=== PATIENT | male | born 2000 | race Caucasian/White ===

== ENCOUNTER 2019-12-24 10:07 | Emergency (ER) | payer OTHER ==
[~2019-12-24] VITALS: Ht 160 cm; Wt 53.1 kg
[2019-12-24] MEDS ORDERED: ACETAMINOPHEN 500 MG TAB PO ONE (11:15)
[2019-12-24 11:51] VITALS: O2SAT 99
[2019-12-24 12:17] LABS: BASO % 0.5 % (0.0-1.0); EOS # 0.2 10^3/uL (0.0-0.5); HEMATOCRIT 43.5 % (42.0-52.0); HEMOGLOBIN 15.1 g/dl (13.5-17.5); LYMPH % 26.9 % (24.0-44.0); MEAN CORPUSCULAR HEMOGLOBIN 29.3 pg (27.0-33.0); MEAN CORPUSCULAR HGB CONC 34.7 g/dl (32.0-36.5); MEAN CORPUSCULAR VOLUME 84.5 fl (80.0-96.0); MONO # 0.9 10^3/uL (0.0-0.8); MONO % 12.1 % (0.0-5.0); NEUTROPHILS # 4.2 10^3/uL (1.5-8.5); NEUTROPHILS % 57.2 % (36.0-66.0); PLATELET COUNT, AUTOMATED 247 10^3/uL (150-450); RED BLOOD COUNT 5.15 10^6/uL (4.30-6.10); WHITE BLOOD COUNT 7.3 10^3/uL (4.0-10.0)
[2019-12-24 12:39] LABS: BLOOD UREA NITROGEN 12 MG/DL (7-18); CALCIUM LEVEL 9.4 MG/DL (8.5-10.1); CARBON DIOXIDE LEVEL 30 MEQ/L (21-32); CHLORIDE LEVEL 107 MEQ/L (98-107); CPK CREATINE PHOSPHOKINASE 160 U/L (39-308); GLUCOSE, FASTING 76 MG/DL (70-100); MB/CK RELATIVE INDEX 0.62 (< OR =4); POTASSIUM SERUM 4.4 MEQ/L (3.5-5.1); SODIUM LEVEL 142 MEQ/L (136-145); TROPONIN I < 0.02 NG/ML (< 0.10)
[2019-12-24] MEDS ORDERED: PROAAER10 INH (13:26)
[2019-12-24] MEDS ORDERED: IBUP80TA PO (13:27)
[2019-12-24] MEDS ORDERED: TESS100C PO (13:30)
[2019-12-24 13:38] VITALS: BP 123/61
--- NOTE | 2020-01-10 10:44 | ECGEPIP ---
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
--- NOTE | 2020-01-24 10:41 | REP ---
CHEST X-RAY CLINICAL: Chest pain and shortness of breath with cough. TECHNIQUE: PA and lateral. COMPARISON: None. FINDINGS: Mediastinum and cardiac silhouette normal. Lung sheets clear. No focal consolidation, effusion, or pneumothorax. Skeletal structures are intact. IMPRESSION: Normal chest x-ray. No acute cardiopulmonary process or focal consolidation. MTDD
== END 2019-12-24 13:41 | disposition home or self-care (01) ==
LOC: M ED 10:07
DX: J98.01 Acute bronchospasm (principal); B97.19 Other enterovirus as the cause of diseases classified elsewhere; F17.210 Nicotine dependence, cigarettes, uncomplicated

== ENCOUNTER 2020-06-19 22:10 | Emergency (ER) | payer OTHER ==
[~2020-06-19] VITALS: Ht 160 cm; Wt 53.1 kg
[~2020-06-19 22:10] MED LIST: IBUP80TA PO; PROAAER10 INH; TESS100C PO
--- OUTSIDE RECORDS SUMMARY | 2020-06-19 22:23 | CCD ---
Author Author [facility] Organization [facility] Address Unknown Phone Unavailable Support Name Relationship Address Phone [facility] Next Of Kin [address] [place] [address] Unavailable JUDE [place] [address] Re-disclosure Warning The records that you are about to access may contain information from federally-assisted alcohol or drug abuse programs. If such information is present, then the following federally mandated warning applies: This information has been disclosed to you from records protected by federal confidentiality rules (42 CFR part 2). The federal rules prohibit you from making any further disclosure of this information unless further disclosure is expressly permitted by the written consent of the person to whom it pertains or as otherwise permitted by 42 CFR part 2. A general authorization for the release of medical or other information is NOT sufficient for this purpose. The Federal rules restrict any use of the information to criminally investigate or prosecute any alcohol or drug abuse patient.The records that you are about to access may contain highly sensitive health information, the redisclosure of which is protected by Article 27-F of the [facility] Public Health law. If you continue you may have access to information: Regarding HIV / AIDS; Provided by facilities licensed or operated by the [facility] Office of Mental Health; or Provided by the [facility] Office for People With Developmental Disabilities. If such information is present, then the following [facility] mandated warning applies: This information has been disclosed to you from confidential records which are protected by state law. State law prohibits you from making any further disclosure of this information without the specific written consent of the person to whom it pertains, or as otherwise permitted by law. Any unauthorized further disclosure in violation of state law may result in a fine or fci sentence or both. A general authorization for the release of medical or other information is NOT sufficient authorization for further disc losure. Insurance Providers Payer name Policy type / Coverage type Policy ID Covered libertarian ID Covered libertarian's relationship to bashir Policy Bashir Plan Information [facility] [employer] [id number]
[2020-06-19] MEDS ORDERED: OLAN5ZYD PO (22:30)
[2020-06-19] MEDS ORDERED: ESCI5SOL3 PO (22:30)
[2020-06-19] MEDS ORDERED: HYDR-3363 PO (22:30)
[2020-06-19 23:38] LABS: HEMATOCRIT 44.5 % (42.0-52.0); HEMOGLOBIN 15.2 g/dl (13.5-17.5); MEAN CORPUSCULAR HEMOGLOBIN 28.6 pg (27.0-33.0); MEAN CORPUSCULAR HGB CONC 34.2 g/dl (32.0-36.5); MEAN CORPUSCULAR VOLUME 83.6 fl (80.0-96.0); PLATELET COUNT, AUTOMATED 269 10^3/uL (150-450); RED BLOOD COUNT 5.32 10^6/uL (4.30-6.10)
[2020-06-20 00:01] LABS: AMPHETAMINES LEVEL URINE NEGATIVE (NEGATIVE); BARBITURATES URINE NEGATIVE (NEGATIVE); BENZODIAZEPINES URINE NEGATIVE (NEGATIVE); CANNABINOIDS URINE NEGATIVE (NEGATIVE); COCAINE METABOLITE URINE NEGATIVE (NEGATIVE); METHADONE URINE NEGATIVE (NEGATIVE); OPIATES URINE NEGATIVE (NEGATIVE); PHENCYCLIDINE URINE NEGATIVE (NEGATIVE)
[2020-06-20 00:11] LABS: ACETAMINOPHEN LEVEL < 2.0 UG/ML (10.0-30.0); ALBUMIN 4.3 GM/DL (3.2-5.2); ALT/SGPT 22 U/L (12-78); BILIRUBIN,DIRECT 0.1 MG/DL (0.0-0.2); BILIRUBIN,TOTAL 0.4 MG/DL (0.2-1.0); BLOOD UREA NITROGEN 18 MG/DL (7-18); CALCIUM LEVEL 9.6 MG/DL (8.5-10.1); CARBON DIOXIDE LEVEL 33 MEQ/L (21-32); CHLORIDE LEVEL 101 MEQ/L (98-107); CREATININE FOR GFR 1.17 MG/DL (0.70-1.30); ETHYL ALCOHOL (ETHANOL) < 0.003 % (0.000-0.010); GLOMERULAR FILTRATION RATE > 60.0 (>60); GLUCOSE, FASTING 84 MG/DL (70-100); POTASSIUM SERUM 4.2 MEQ/L (3.5-5.1); SALICYLATE LEVEL < 1.7 MG/DL (5.0-30.0); SODIUM LEVEL 138 MEQ/L (136-145); TOTAL PROTEIN 7.7 GM/DL (6.4-8.2)
--- OUTSIDE RECORDS SUMMARY | 2020-06-20 03:02 | CCD ---
Author Author [facility] Organization [facility] Address Unknown Phone Unavailable Support Name Relationship Address Phone [facility] Next Of Kin [address] [place] [address] Unavailable JUDE [place] [address] Re-disclosure Warning The records that you are [...] is protected by Article 27-F of the [facility] Public Health law. If you continue you may have access to information: Regarding HIV / AIDS; Provided by facilities licensed or operated by the [facility] Office of Mental Health; or Provided by the [facility] Office for People With Developmental Disabilities. If such information is present, then the following [facility] mandated warning applies: This information has been [...] law may result in a fine or long-term sentence or both. A general authorization for the release of medical or other information is NOT sufficient authorization for further disc losure. Insurance Providers Payer name Policy type / Coverage type Policy ID Covered republican ID Covered republican's relationship to bashir Policy Bashir Plan Information [facility] ACTIVE DUTY [id number]
--- NOTE | 2020-06-20 07:56 | ECGEPIP ---
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
[2020-06-20 15:31] VITALS: BP 119/59
== END 2020-06-20 15:33 ==
LOC: M ED 22:10
DX: R45.851 Suicidal ideations (principal); F33.9 Major depressive disorder, recurrent, unspecified; S46.222A Laceration of muscle, fascia and tendon of other parts of biceps, left arm, initial encounter; X58.XXXA Exposure to other specified factors, initial encounter; Y92.89 Other specified places as the place of occurrence of the external cause; F41.9 Anxiety disorder, unspecified; Z79.899 Other long term (current) drug therapy; Z77.098 Contact with and (suspected) exposure to other hazardous, chiefly nonmedicinal, chemicals
CPT/HCPCS: 36415; 80048; 80076; 80143; 80307; 82077; 84443; 85027; 93005; 99285; U0002

== ENCOUNTER 2020-08-05 00:54 | Inpatient (IN) | payer OTHER ==
[~2020-08-05] VITALS: Ht 160 cm; Wt 52.3 kg
[~2020-08-05 00:54] MED LIST changes: +ESCI5SOL3 PO; +HYDR-3363 PO; +OLAN5ZYD PO
[2020-08-05] MEDS ORDERED: MELA3TAB70 PO (01:02)
[2020-08-05 01:36] LABS: HEMATOCRIT 41.1 % (42.0-52.0); HEMOGLOBIN 14.3 g/dl (13.5-17.5); MEAN CORPUSCULAR HEMOGLOBIN 28.9 pg (27.0-33.0); MEAN CORPUSCULAR HGB CONC 34.8 g/dl (32.0-36.5); MEAN CORPUSCULAR VOLUME 83.2 fl (80.0-96.0); PLATELET COUNT, AUTOMATED 242 10^3/uL (150-450); RED BLOOD COUNT 4.94 10^6/uL (4.30-6.10)
[2020-08-05 02:10] LABS: ACETAMINOPHEN LEVEL 2.3 UG/ML (10.0-30.0); ALBUMIN 4.5 GM/DL (3.2-5.2); ALT/SGPT 55 U/L (12-78); BILIRUBIN,DIRECT 0.3 MG/DL (0.0-0.2); BILIRUBIN,TOTAL 0.7 MG/DL (0.2-1.0); BLOOD UREA NITROGEN 8 MG/DL (7-18); CALCIUM LEVEL 10.1 MG/DL (8.5-10.1); CARBON DIOXIDE LEVEL 28 MEQ/L (21-32); CHLORIDE LEVEL 105 MEQ/L (98-107); CREATININE FOR GFR 1.02 MG/DL (0.70-1.30); ETHYL ALCOHOL (ETHANOL) < 0.003 % (0.000-0.010); GLOMERULAR FILTRATION RATE > 60.0 (>60); GLUCOSE, FASTING 87 MG/DL (70-100); POTASSIUM SERUM 3.7 MEQ/L (3.5-5.1); SALICYLATE LEVEL < 1.7 MG/DL (5.0-30.0); SODIUM LEVEL 139 MEQ/L (136-145); TOTAL PROTEIN 7.7 GM/DL (6.4-8.2)
[2020-08-05 02:17] LABS: AMPHETAMINES LEVEL URINE NEGATIVE (NEGATIVE); BARBITURATES URINE NEGATIVE (NEGATIVE); BENZODIAZEPINES URINE NEGATIVE (NEGATIVE); CANNABINOIDS URINE NEGATIVE (NEGATIVE); COCAINE METABOLITE URINE NEGATIVE (NEGATIVE); METHADONE URINE NEGATIVE (NEGATIVE); OPIATES URINE NEGATIVE (NEGATIVE); PHENCYCLIDINE URINE NEGATIVE (NEGATIVE)
[2020-08-05] MEDS ORDERED: NICOTINE 21MG/24HR 1 EA TRANSDERMAL TD ONE (14:45)
--- NOTE | 2020-08-05 16:01 | ECGEPIP ---
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
[2020-08-06] MEDS ORDERED: hydrOXYzine 25 MG TAB PO ONE ×2 (00:15→07:20)
[2020-08-06 09:29] LABS: RSV AMPLIFICATION NEGATIVE (NEGATIVE)
[2020-08-06] MEDS ORDERED: MOM 30ML SUSPENSION UDC PO PRN (13:50)
[2020-08-06] MEDS ORDERED: IBUPROFEN 400MG TAB PO PRN (13:50)
[2020-08-06] MEDS ORDERED: MAALOX 30 ML SUSP *UDC PO PRN (13:50)
[2020-08-06] MEDS ORDERED: OLAN5TAB PO (15:02)
[2020-08-06] MEDS ORDERED: LEXA1TAB PO (15:02)
[2020-08-06] MEDS ORDERED: RA M10TA PO (15:02)
[2020-08-06 15:24] VITALS: BP 127/63
[2020-08-06] MEDS: NICOTINE 14 MG/24 HR TRANSDERMAL TD SCH (15:44)
[2020-08-06] MEDS ORDERED: hydrOXYzine 25 MG TAB PO PRN (16:05)
[2020-08-06] MEDS: ESCITALOPRAM OXALATE 10 MG TAB (LEXAPRO) PO SCH (17:08)
[2020-08-06] MEDS: OLANZapine 5 MG TAB PO SCH (20:35)
[2020-08-06] MEDS: traZODone 50 MG TAB PO PRN (20:35)
[2020-08-07] MEDS: NICOTINE 14 MG/24 HR TRANSDERMAL TD SCH (08:58)
[2020-08-07] MEDS: ESCITALOPRAM OXALATE 10 MG TAB (LEXAPRO) PO SCH (08:58)
--- NOTE | 2020-08-07 10:52 | HPEPDOC ---
[facility] Medical History & Physical Date of Admission Aug 05, 2020 Date of Service: Aug 07, 2020 History and Physical CHIEF COMPLAINT: Suicidal ideation HISTORY OF PRESENT ILLNESS: 20-year-old male presents for suicidal ideation. He does have a past medical history significant for suicidal ideation. He noted that he did have thoughts of hanging himself with rope for possible shoelaces. This morning. He voices no medical complaints. He denies chest pain, shortness of breath, abdominal pain, nausea, vomiting, diarrhea or headaches. ALLERGIES: Please see below. REVIEW OF SYSTEMS: Negative except as per HPI. HOME MEDICATIONS: Please see below. PHYSICAL EXAMINATION: VITAL SIGNS: See below General: NAD, sitting comfortably in chair HEENT: NC/AT Lungs: CTA B/L Heart: +S1S2, RRR Abd: soft, NT, +BS Ext: no edema LABORATORY DATA: See below. MICROBIOLOGY: Please see below. A/P: 20 year old male for suicidal ideation. #SI - as per primary team psychiatry Thank you for this consultation. Please re-consult as needed. Vital Signs Vital Signs Date Time Temp Pulse Resp B/P (MAP) Pulse Ox O2 Delivery O2 Flow Rate FiO2 08/06/20 15:24 98.7 72 16 127/63 (84) 100 Room Air Home Medications Scheduled Escitalopram Oxalate (Lexapro) 10 Mg Tablet, 10 MG PO DAILY Olanzapine (Olanzapine) 5 Mg Tablet, 5 MG PO QHS Scheduled PRN Hydroxyzine HCl (Hydroxyzine HCl) 25 Mg Tablet, 25 MG PO TID PRN for ANXIETY/AGITATION Allergies Coded Allergies: No Known Allergies (Unverified , 12/24/19) A-FIB/CHADSVASC A-FIB History Current/History of A-Fib/PAF?: No RENE BONILLA MD Aug 07, 2020 10:51
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
[2020-08-07 16:32] VITALS: BP 112/60
[2020-08-07] MEDS: traZODone 50 MG TAB PO PRN (20:06)
[2020-08-07] MEDS: OLANZapine 5 MG TAB PO SCH (20:06)
[2020-08-08 06:10] VITALS: BP 122/61
[2020-08-08 07:53] LABS: CHOLESTEROL RISK RATIO 2.773 (<5)
[2020-08-08] MEDS: ESCITALOPRAM OXALATE 10 MG TAB (LEXAPRO) PO SCH (09:02)
[2020-08-08] MEDS: NICOTINE 14 MG/24 HR TRANSDERMAL TD SCH (09:02)
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
[2020-08-08 16:36] VITALS: BP 110/57
[2020-08-08] MEDS: traZODone 50 MG TAB PO PRN (20:20)
[2020-08-08] MEDS: OLANZapine 5 MG TAB PO SCH (20:20)
[2020-08-09 06:32] VITALS: BP 140/63
[2020-08-09] MEDS: NICOTINE 14 MG/24 HR TRANSDERMAL TD SCH ×2 (09:00→12:30)
[2020-08-09] MEDS: ESCITALOPRAM OXALATE 10 MG TAB (LEXAPRO) PO SCH (09:21)
--- NOTE | 2020-08-09 10:18 | MHDSPDOC ---
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 He reports that he is not thinking of suicide during the initial interview and states that he has suicidal thoughts off and on for the past 6 years. States "it never lasts long" When he does think about it, he thinks of hanging himself and has thought of other things to do to self-harm but did not elaborate. He states that he doesn't feel suicidal at the time of the interview, doesn't feel that he has any stressors that he can pinpoint but does report that he has not been taking his medications. Patient does not want to stay in the hospital and [place] PER ED REPORT: Pt was brought to the ED by GILMA due to SI. TW spoke to SGT Fish ([phone]). He states that pt starts to have SI when he is left alone for more than a few days. The unit was out in the field this past week but pt. did not go with them. On 08/03/20 pt. told his therapist at [facility] that he had a rope that he was thinking about hanging himself with so he was instructed to give it to somebody as a safety protocol. He did give the rope to one of his friends, but still had other objects in his room that he could use to hang himself with. Per SGT Fish, pt.s william SSgt read pt.s journal marielosight which had a lot of dark thoughts in it & mentioned suicide as an option frequently. GILMA instructed pt. to bring the journal here to the ED with him but pt. refused. SGT Fish states that pt. went to group therapy twice at [facility] but then stopped going because he did not feel it was beneficial. Pt states "I had a rough night. The suicidal thoughts were starting to get really bad." He states that he had a friend remove all his shoelaces, belts, ropes, & anything else that he could use to hang himself with. Pt denies SI at the present moment stating "I feel amazing now. I took my meds." Pt cannot identify any triggers for his SI & states that he had a really good day. Pt denies HI. He has a Hx of holding a knife to his throat multiple times when he was younger & he reports a suicide attempt via hanging two years ago. Pt reports that he has "dissociative episodes" & in May 2020 he was hospitalized following one of these episodes because he cut himself to "find out if I was real." Pt denies both AH & VH. He does not appear to be psychotic. Pt c/o depressed mood, anxiety, decreased energy levels, & poor sleep. He has a hx of MDD & anxiety with two admissions. He was admitted to [facility] in [place] for 28 days in April 2020 because he was not eating or sleeping. He was admitted to [place] in May 2020 after the cutting incident. He has OP tx at [facility]. Pt states he is prescribed Lexapro, Atarax, & Zyprexa. Pt denies any drug use & report s only occasional alcohol use. Pt's tox screen was negative. CONSULTANTS INVOLVED: See Medical H + P by Hospitalist TREATMENT AND PROGRESS ON THE UNIT: Patient was admitted to the [facility] on a 9.39 legal status he was afforded the following treatment modalities: 1) Individual Therapy 2) Group Therapy 3) Medication Management 4) Milieu Therapy 5) Safe Environment HOSPITAL COURSE: Patient was admitted to [facility] on a 9.39 legal status. He was started on his home medications and did not agree on any increase in his Lexapro. States that he was only having thoughts of suicide but was not actually having any intent to harm himself. He states he was in the process of using his safety plans when it was interrupted and he was mandated to be seen in the ED for a Mental Health evaluation. He was cooperative on the unit, stayed close to his quarters but was social at times with peers, attended a few groups and was present in the milieu at times. He was agreeable to his current medications. We discussed his long time off and on again suicidality, patient could not identify stressors or any specific triggers, he is often observed superficial and minimizing any depressive symptoms. DISCHARGE ASSESSMENT: In today's interview, patient is alert and oriented, pts dress is appropriate. Hygiene and grooming is well-kempt. Smiles on approach and is pleasant and engaged in the interview. Denies depression and anxiety. Denies suicidal and homicidal ideation, planning or intent. Denies and is not observed with sarah, psychotic symptoms of delusions, bizarre thinking, obsessions, paranoia, ruminations illogical thoughts, flight of ideas or having poor insight and judgement. Patient has normal mentation, declines further hospitalization on a voluntary status and meets criteria for discharge today. Patient encouraged to return to hospital if his symptoms worsen or change and encouraged to call unit if he/she/they needs to speak to provider for questions regarding medications or care. 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 Speech: Is fluid, normal rate, tone and volume Language skills are intact Thought processes including: linear and goal oriented Thought content: denies depression and anxiety. Denies suicidal/homicidal ideation, planning or intent. Abstract reasoning, and computation: fair Description of associations: denies, none observed Description of abnormal or psychotic thoughts: denies, none observed. Judgment: fair Insight: fair Orientation: alert and oriented to person, place, time and situation Recent and remote memory: intact Attention span and concentration: good Language: expansive Fund of knowledge: average Mood: Euthymic Mood Affect: Flat MEDICATIONS ON DISCHARGE: See Medication Reconciliation, patient was continued on all his current home medications, he denied needing any renewals. PLAN/FOLLOWUP ARRANGEMENTS: Patient is being discharged to [facility]. He is following up with [facility] where he is already established. The amount of time spent in the coordination of care for this patient was approximately 30 minutes. ETOH/Disorder Med Rx ETOH/DRUG DISORDER RX: N/A Vital Signs/I&Os Vital Signs Date Time Temp Pulse Resp B/P (MAP) Pulse Ox O2 Delivery O2 Flow Rate FiO2 08/09/20 06:32 98.0 50 16 140/63 (88) 97 Room Air Medications Scheduled Escitalopram Oxalate (Lexapro) 10 Mg Tablet, 10 MG PO DAILY, (Reported) Olanzapine (Olanzapine) 5 Mg Tablet, 5 MG PO QHS, (Reported) Scheduled PRN Hydroxyzine HCl (Hydroxyzine HCl) 25 Mg Tablet, 25 MG PO TID PRN for ANXIETY/AGITATION, (Reported) Allergies Coded Allergies: No Known Allergies (Unverified , 12/24/19) KATIE CONSTANTINO NP Aug 09, 2020 10:18
--- NOTE | 2020-08-09 17:56 | MHIPNPDOC ---
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 He reports that he is not thinking of suicide during the initial interview and states that he has suicidal thoughts off and on for the past 6 years. States "it never lasts long" When he does think about it, he thinks of hanging himself and has thought of other things to do to self-harm but did not elaborate. He states that he doesn't feel suicidal at the time of the interview, doesn't feel that he has any stressors that he can pinpoint but does report that he has not been taking his medications. Patient does not want to stay in the hospital and reports that [place]. PER ED REPORT: Pt was brought to the ED by GILMA due to SI. TW spoke to SGT Fish ([phone]). He states that pt starts to have SI when he is left alone for more than a few days. The unit was out in the field this past week but pt. did not go with them. On 08/03/20 pt. told his therapist at [facility] that he had a rope that he was thinking about hanging himself with so he was instructed to give it to somebody as a safety protocol. He did give the rope to one of his friends, but still had other objects in his room that he could use to hang himself with. Per SGT Fish, pt.s william SSgt read pt.s journal [employer] which had a lot of dark thoughts in it & mentioned suicide as an option frequently. GILMA instructed pt. to bring the journal here to the ED with him but pt. refused. SGT Fish states that pt. went to group therapy twice at [facility] but then stopped going because he did not feel it was beneficial. Pt states "I had a rough night. The suicidal thoughts were starting to get really bad." He states that he had a friend remove all his shoelaces, belts, ropes, & anything else that he could use to hang himself with. Pt denies SI at the present moment stating "I feel amazing now. I took my meds." Pt cannot identify any triggers for his SI & states that he had a really good day. Pt denies HI. He has a Hx of holding a knife to his throat multiple times when he was younger & he reports a suicide attempt via hanging two years ago. Pt reports that he has "dissociative episodes" & in May 2020 he was hospitalized following one of these episodes because he cut himself to "find out if I was real." Pt denies both AH & VH. He does not appear to be psychotic. Pt c/o depressed mood, anxiety, decreased energy levels, & poor sleep. He has a hx of MDD & anxiety with two admissions. He was admitted to [facility] in [place] for 28 days in April 2020 because he was not eating or sleeping. He was admitted to [place] in May 2020 after the cutting incident. He has OP tx at [facility]. Pt states he is prescribed Lexapro, Atarax, & Zyprexa. Pt denies any drug use & report s only occasional alcohol use. Pt's tox screen was negative. VITAL SIGNS: See below. NEW TEST RESULTS: see below CURRENT MEDICATIONS: See below. 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 Speech: Is fluid, conversant, normal rate, tone and volume Language skills are intact Thought processes including: linear and goal oriented Thought content: denies depression and anxiety. Denies suicidal/homicidal ideation, planning or intent. Abstract reasoning, and computation: fair Description of associations: denies, none observed Description of abnormal or psychotic thoughts: denies, none observed. Judgment: fair Insight: fair Orientation: alert and oriented to person, place, time and situation Recent and remote memory: intact Attention span and concentration: good Language: expansive Fund of knowledge: average Mood: Euthymic Mood Affect: reactive DIAGNOSES: Major Depressive Disorder, Recurrent, Moderate Unspecified Anxiety Disorder Nicotine Use Disorder ASSESSMENT: Patient is requesting to be discharged today. He denies suicidal ideation today, reports that he has a safety plan. Denies current suicidality. Denies continued depressive symptoms that require continued hospitalization. MANAGEMENT PLAN: Continue all medications, patient declined any changes to medications and requesting discharge. Discharge was initiated today, Chain of Command were unable to warehouse picker patient TIME SPENT: 25 minutes. Vital Signs Vital Signs Date Time Temp Pulse Resp B/P (MAP) Pulse Ox O2 Delivery O2 Flow Rate FiO2 08/09/20 09:00 Room Air 08/09/20 06:32 98.0 50 16 140/63 (88) 97 Current Medications Current Medications Medications (Trade) Dose Ordered Sig/Jah Route PRN Reason Start Time Stop Time Status Last Admin Dose Admin Al Hydrox/Mg Hydrox/Simethicone (Mylanta) 30 ml Q4HP PRN PO HEARTBURN/INDIGESTION 08/06/20 13:50 Escitalopram Oxalate (Lexapro) 10 mg DAILY PO 08/06/20 09:00 08/09/20 09:21 Home Med (Med Rec Complete!) ASDIRECTED XX 08/06/20 15:30 08/06/20 15:31 DC Hydroxyzine HCl (Atarax) 25 mg TID PRN PO ANXIETY/AGITATION 08/06/20 16:05 Ibuprofen (Advil) 400 mg Q6HP PRN PO PAIN 08/06/20 13:50 Magnesium Hydroxide (Milk Of Magnesia) 30 ml DAILYPRN PRN PO CONSTIPATION 08/06/20 13:50 Nicotine (Nicoderm Cq 14mg) 1 patch DAILY TD 08/06/20 15:00 08/09/20 12:30 Olanzapine (ZyPREXA) 5 mg QHS PO 08/06/20 21:00 08/08/20 20:20 Trazodone HCl (Desyrel) 50 mg QHSP PRN PO INSOMNIA 08/06/20 13:50 08/08/20 20:20 Allergies Coded Allergies: No Known Allergies (Unverified , 12/24/19) KATIE CONSTANTINO NP Aug 09, 2020 17:56
[2020-08-09 18:43] VITALS: BP 109/53
[2020-08-09] MEDS: traZODone 50 MG TAB PO PRN (21:13)
[2020-08-09] MEDS: OLANZapine 5 MG TAB PO SCH (21:13)
[2020-08-10 06:28] VITALS: BP 126/61
[2020-08-10] MEDS: NICOTINE 14 MG/24 HR TRANSDERMAL TD SCH (09:00)
[2020-08-10] MEDS: ESCITALOPRAM OXALATE 10 MG TAB (LEXAPRO) PO SCH (09:08)
--- NOTE | 2020-08-10 09:54 | MHDSPDOC ---
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 He reports that he is not thinking of suicide during the initial interview and states that he has suicidal thoughts off and on for the past 6 years. States "it never lasts long" When he does think about it, he thinks of hanging himself and has thought of other things to do to self-harm but did not elaborate. He states that he doesn't feel suicidal at the time of the interview, doesn't feel that he has any stressors that he can pinpoint but does report that he has not been taking his medications. Patient does not want to stay in the hospital and [place] that [place] PER ED REPORT: Pt was brought to the ED by GILMA due to SI. TW spoke to SGT Fish ). He states that pt starts to have SI when he is left alone for more than a few days. The unit was out in the field this past week but pt. did not go with them. On 08/03/20 pt. told his therapist at [facility] that he had a rope that he was thinking about hanging himself with so he was instructed to give it to somebody as a safety protocol. He did give the rope to one of his friends, but still had other objects in his room that he could use to hang himself with. Per SGT Fish, pt.s william SSgt read pt.s journal marielosight which had a lot of dark thoughts in it & mentioned suicide as an option frequently. GILMA instructed pt. to bring the journal here to the ED with him but pt. refused. SGT Fish states that pt. went to group therapy twice at [facility] but then stopped going because he did not feel it was beneficial. Pt states "I had a rough night. The suicidal thoughts were starting to get really bad." He states that he had a friend remove all his shoelaces, belts, ropes, & anything else that he could use to hang himself with. Pt denies SI at the present moment stating "I feel amazing now. I took my meds." Pt cannot identify any triggers for his SI & states that he had a really good day. Pt denies HI. He has a Hx of holding a knife to his throat multiple times when he was younger & he reports a suicide attempt via hanging two years ago. Pt reports that he has "dissociative e pisodes" & in May 2020 he was hospitalized following one of these episodes because he cut himself to "find out if I was real." Pt denies both AH & VH. He does not appear to be psychotic. Pt c/o depressed mood, anxiety, decreased energy levels, & poor sleep. He has a hx of MDD & anxiety with two admissions. He was admitted to [place] in [place] for 28 days in April 2020 because he was not eating or sleeping. He was admitted to [place] in May 2020 after the cutting incident. He has OP tx at [facility]. Pt states he is prescribed Lexapro, Atarax, & Zyprexa. Pt denies any drug use & report s only occasional alcohol use. Pt's tox screen was negative. CONSULTANTS INVOLVED: See Medical H + P by Hospitalist TREATMENT AND PROGRESS ON THE UNIT: [facility] he was afforded the following treatment modalities: 1) Individual Therapy 2) Group Therapy 3) Medication Management 4) Milieu Therapy 5) Safe Environment HOSPITAL COURSE: [facility] 9.39 [facility]. He was started on his home medications and did not agree on any increase in his Lexapro. States that he was only having thoughts of suicide but was not actually having any intent to harm himself. He states he was in the process of using his safety plans when it was interrupted and he was mandated to be seen in the ED for a Mental Health evaluation. He was cooperative on the unit, stayed close to his quarters but was social at times with peers, attended a few groups and was present in the milieu at times. He was agreeable to his current medications. We discussed his long time off and on again suicidality, patient could not identify stressors or any specific triggers, he is often observed superficial and minimizing any depressive symptoms. DISCHARGE ASSESSMENT: In today's interview, patient is alert and oriented, pts dress is appropriate. Hygiene and grooming is well-kempt. Smiles on approach and is pleasant and engaged in the interview. Denies depression and anxiety. Denies suicidal and homicidal ideation, planning or intent. Denies and is not observed with sarah, psychotic symptoms of delusions, bizarre thinking, obsessions, paranoia, ruminations illogical thoughts, flight of ideas or having poor insight and judgement. Patient has normal mentation, declines further hospitalization on a voluntary status and meets criteria for discharge today. Patient encouraged to return to hospital if his symptoms worsen or change and encouraged to call unit if he/she/they needs to speak to provider for questions regarding medications or care. 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 Speech: Is fluid, normal rate, tone and volume Language skills are intact Thought processes including: linear and goal oriented Thought content: denies depression and anxiety. Denies suicidal/homicidal ideation, planning or intent. Abstract reasoning, and computation: fair Description of associations: denies, none observed Description of abnormal or psychotic thoughts: denies, none observed. Judgment: fair Insight: fair Orientation: alert and oriented to person, place, time and situation Recent and remote memory: intact Attention span and concentration: good Language: expansive Fund of knowledge: average Mood: Euthymic Mood Affect: Flat MEDICATIONS ON DISCHARGE: See Medication Reconciliation, patient was continued on all his current home medications, he denied needing any renewals. PLAN/FOLLOWUP ARRANGEMENTS: Patient is being discharged to [facility]. He is following up with [facility] where he is already established. The amount of time spent in the coordination of care for this patient was sondra roximately 30 minutes. ETOH/Disorder Med Rx ETOH/DRUG DISORDER RX: N/A Vital Signs/I&Os Vital Signs Date Time Temp Pulse Resp B/P (MAP) Pulse Ox O2 Delivery O2 Flow Rate FiO2 08/10/20 06:28 97.4 65 16 126/61 (82) 99 Room Air Medications Scheduled Escitalopram Oxalate (Lexapro) 10 Mg Tablet, 10 MG PO DAILY, (Reported) Olanzapine (Olanzapine) 5 Mg Tablet, 5 MG PO QHS, (Reported) Scheduled PRN Hydroxyzine HCl (Hydroxyzine HCl) 25 Mg Tablet, 25 MG PO TID PRN for ANXIETY/AGITATION, (Reported) Allergies Coded Allergies: No Known Allergies (Unverified , 12/24/19) KATIE CONSTANTINO NP Aug 10, 2020 08:12
== END 2020-08-10 03:16 | disposition home or self-care (01) | DRG 885 ==
LOC: M ED 00:54 → M ED INP 08-06 13:46 → M PSY 08-06 15:00
PROVIDERS: ADMIT Psychiatry & Neurology Psychiatry; ATTEND Psychiatry & Neurology Psychiatry
DX: F33.1 Major depressive disorder, recurrent, moderate (principal); R45.851 Suicidal ideations; F17.290 Nicotine dependence, other tobacco product, uncomplicated; F41.9 Anxiety disorder, unspecified; Z79.899 Other long term (current) drug therapy; Z81.8 Family history of other mental and behavioral disorders; Z81.3 Family history of other psychoactive substance abuse and dependence

== ENCOUNTER → 2021-01-17 | Outpatient (REF) ==
[~2021-01-17] MED LIST changes: +LEXA1TAB PO; +MELA3TAB70 PO; +OLAN1TAB16 PO; +RA M10TA PO
--- NOTE | 2021-01-17 09:51 | REP ---
INDICATION: SOB COMPARISON: 12/24/2019. TECHNIQUE: PA/Lateral FINDINGS: Lungs: Clear, no infiltrate. Heart: Normal in size. Mediastinum: Mediastinal silhouette unremarkable. Pleural angles: Unremarkable.. Bones and soft tissues: Unremarkable. IMPRESSION: No acute pulmonary disease. <Electronically signed by Silviano Whittington > 01/17/21 0934
== END ==
LOC: M PLAIMG 09:22
PROVIDERS: ATTEND Internal Medicine
DX: R06.02 Shortness of breath (principal)

== ENCOUNTER 2021-06-24 12:03 | Emergency (ER) | payer OTHER ==
[~2021-06-24] VITALS: Ht 160 cm; Wt 50.0 kg
[2021-06-24 16:05] VITALS: BP 125/75
== END 2021-06-24 16:24 | disposition home or self-care (01) ==
LOC: M ED 12:03
DX: S62.324A Displaced fracture of shaft of fourth metacarpal bone, right hand, initial encounter for closed fracture (principal); W23.0XXA Caught, crushed, jammed, or pinched between moving objects, initial encounter; Y92.89 Other specified places as the place of occurrence of the external cause; Y99.0 Civilian activity done for income or pay; F33.9 Major depressive disorder, recurrent, unspecified; F41.9 Anxiety disorder, unspecified; F43.10 Post-traumatic stress disorder, unspecified; Z77.098 Contact with and (suspected) exposure to other hazardous, chiefly nonmedicinal, chemicals

== ENCOUNTER 2021-07-03 11:08 | Day surgery (SDC) | payer OTHER ==
[~2021-07-03] VITALS: Ht 160 cm; Wt 51.3 kg
[~2021-07-03 11:08] MED LIST changes: +LR 1,000 ML IV ONE; +MIDAZOLAM INJ 2MG/2ML VIAL (J2250 PER 1MG) IV PRN; +ceFAZolin SOD 2 GM in IV 1 EA IV SCH; +fentaNYL 100 MCG/2 ML INJECTION IV PRN
[2021-07-03] MEDS ORDERED: ACET650T3 PO (11:46)
[2021-07-03] MEDS ORDERED: LIDOCAINE 2% 100MG/5ML SDV (FOR ANES.) As Ordered ONE (13:05)
[2021-07-03] MEDS ORDERED: propofoL 200 MG/20 ML VIAL As Ordered ONE ×2 (13:05→13:06)
[2021-07-03] MEDS ORDERED: ONDANSETRON 4MG/2ML VIAL As Ordered ONE (13:06)
[2021-07-03] MEDS ORDERED: dexameTHASONE 4 MG/ML 1ML VIAL (J1100 PER 1MG) As Ordered ONE ×2 (13:06→15:02)
[2021-07-03] MEDS ORDERED: MIDAZOLAM INJ 2MG/2ML VIAL (J2250 PER 1MG) As Ordered ONE (13:09)
[2021-07-03] MEDS ORDERED: fentaNYL 100 MCG/2 ML INJECTION As Ordered ONE (13:09)
[2021-07-03] MEDS ORDERED: ROPIvacaine 0.5% 30ML INJECTION (J2795 PER 1MG) XX ONE (13:45)
[2021-07-03] MEDS ORDERED: dexameTHASONE 10MG/1ML VIAL PRES.FREE (J1100 PER 1MG) XX ONE (13:45)
[2021-07-03] MEDS ORDERED: LIDOCAINE 1% MDV 20ML VIAL XX ONE (13:45)
[2021-07-03] MEDS ORDERED: ePHEDrine INJ 50 MG/ML VIAL As Ordered ONE (15:14)
[2021-07-03] MEDS ORDERED: GLYCOPYRROLATE INJ 0.2 MG/ML 2 ML VIAL As Ordered ONE (15:18)
[2021-07-03] MEDS ORDERED: ACETAMINOPHEN 1000MG 100ML IV BTL (OFIRMEV) (J0131 PER 10MG) As Ordered ONE (15:20)
[2021-07-03] MEDS ORDERED: BACITRACIN OINTMENT 30GM TUBE As Ordered ONE (16:05)
[2021-07-03] MEDS ORDERED: ONDANSETRON 4MG/2ML VIAL IV PRN (16:50)
[2021-07-03] MEDS ORDERED: fentaNYL 100 MCG/2 ML INJECTION IV PRN (16:50)
[2021-07-03] MEDS ORDERED: LR 1,000 ML IV SCH (16:50)
[2021-07-03] MEDS ORDERED: oxyCODONE 5MG TAB PO PRN (16:50)
[2021-07-03 18:45] VITALS: BP 128/67
== END 2021-07-03 18:52 | disposition home or self-care (01) ==
LOC: M SDC 11:08
PROVIDERS: ATTEND Orthopaedic Surgery Hand Surgery
DX: S62.324A Displaced fracture of shaft of fourth metacarpal bone, right hand, initial encounter for closed fracture (principal); W23.0XXA Caught, crushed, jammed, or pinched between moving objects, initial encounter; Y92.89 Other specified places as the place of occurrence of the external cause; Y93.9 Activity, unspecified; Y99.0 Civilian activity done for income or pay
CPT/HCPCS: 26615; 76000; C1713; J0131; J0690; J1100; J2250; J2405; J3010

== ENCOUNTER → 2021-07-08 | Outpatient (CLI) | payer OTHER ==
[~2021-07-08] MED LIST changes: +ACET650T3 PO; -LR 1,000 ML IV ONE; -MIDAZOLAM INJ 2MG/2ML VIAL (J2250 PER 1MG) IV PRN; -ceFAZolin SOD 2 GM in IV 1 EA IV SCH; -fentaNYL 100 MCG/2 ML INJECTION IV PRN
== END ==
LOC: M SOG 08:31
PROVIDERS: ATTEND Physician Assistant
DX: S62.324D Displaced fracture of shaft of fourth metacarpal bone, right hand, subsequent encounter for fracture with routine healing (principal); X58.XXXD Exposure to other specified factors, subsequent encounter; Y92.9 Unspecified place or not applicable; Y93.9 Activity, unspecified; Y99.9 Unspecified external cause status

== ENCOUNTER → 2021-07-15 | Outpatient (CLI) | payer OTHER | LOC: M SOG 10:33 | PROVIDERS: ATTEND Physician Assistant | DX: S62.324D Displaced fracture of shaft of fourth metacarpal bone, right hand, subsequent encounter for fracture with routine healing (principal); Y92.9 Unspecified place or not applicable; Y93.9 Activity, unspecified; Y99.9 Unspecified external cause status ==